=== PATIENT | male | born 1990 | race Two or more races ===

== ENCOUNTER → 2022-11-08 15:55 | Outpatient (CLI) | payer BC, SELFPAY ==
--- NOTE | 2022-11-08 16:05 | XR_ITS ---
FINAL REPORT CLINICAL HISTORY: PAIN THORACIC SPINE, PAIN X 2 YEARS, NO INJURY FINDINGS: AP, lateral, and swimmer''s views of the thoracic spine were obtained. There is no prior exam for comparison. There is no acute fracture or malalignment. Vertebral body height is preserved. Paraspinal soft tissues are within normal limits. IMPRESSION: No acute osseous abnormality of the thoracic spine. Reviewed, Interpreted and Dictated by Elizabeth Etienne MD Transcribed by Kamaljit Lloyd Authenticated and [facility]
--- NOTE | 2022-11-08 16:06 | XR_ITS ---
FINAL REPORT CLINICAL HISTORY: PAIN THORACIC SPINE, PAIN X 2 YEARS , NO INJURY FINDINGS: 3 views of the left ribs were obtained. There is no acute fracture. The visualized lungs are clear. No pneumothorax is identified. IMPRESSION: No rib fracture or pneumothorax identified. Reviewed, Interpreted and Dictated by Elizabeth Etienne MD Transcribed by Kamaljit Lloyd Authenticated and . [facility]
== END ==
LOC: RAD 16:02
PROVIDERS: PCP Family Medicine; Visit Provider Family Medicine
DX: M54.6 Pain in thoracic spine (principal)
CPT/HCPCS: 71101; 72072

== ENCOUNTER 2024-05-25 15:37 | Emergency (ER) | payer BC, SELFPAY ==
[2024-05-25 16:00] VITALS: BP 167/107; PULSE 71; RESP 20; TEMP 36.8; O2SAT 100; BMI 32.5
--- NOTE | 2024-05-25 16:13 | ED_ITS ---
Discharge Plan Disposition Patient Disposition: Home, Self-Care Condition: Good Referrals Follow up/Referrals: Provider,Referral, MD [Primary Care Provider] - See instructions Clinical Impressions Clinical Impression: Chest pain, Headache, Blood pressure alteration Instructions Patient Instructions: DASH Diet For a Healthy Blood Pressure, Blood Pressure Testing and Measurement, DI for Atypical Chest Pain Print Language Print Language: Citizen Of [place] Discharge ED Provider: Dannie Ferrara [facility] HPI General Chief complaint: Headache Stated complaint: headache, high blood pressure Mode of Arrival: Ambulatory Source of Information: Patient Limitations: No Limitations Time Seen by Provider: 05/25/24 16:13 Description of Symptoms (Recalled from Triage Doc. by RN): PATIENT REPORTS ELEVATED BLOOD PRESSURE AND HEADACHE SINCE TUESDAY. PATIENT ALSO C/O LEFT SHOULDER PAIN, NO KNOWN INJURY HEENT Symptoms (Recalled from RN notes): Yes Resp Symptoms (Recalled from RN notes): No Skin Symptoms (Recalled from RN notes): No MS Symptoms (Recalled from RN notes): No Functional Status (Recalled from RN notes): WNL History of Present Illness Provider Complaint: Patient states that he seen the chiropractor on Tuesday and they noticed his blood pressure was up, states he has been having pain in his left shoulder area Denies known injury and was at work today and was feeling weird like his heart was beating hard and he checked his blood pressure and it was up again so he came in States he has been seeing the Chiropractor for back pain Related Data Allergies Allergy/AdvReac Type Severity Reaction Status Date / Time No Known Allergies Allergy Verified 05/25/24 16:11 Worker's Comp Is this a Worker's Comp case?: No [facility] Disclaimer: The information contained in this section may have been updated after the patient was seen, as this information can be updated by other users. Medical History (Updated 05/25/24 @ 18:02 by FRANCISCO Lovelace) No significant past medical history Social History (Updated 05/25/24 @ 18:03 by FRANCISCO Lovelace) Smoking Status: Current every day smoker alcohol intake: never current occupational status: employed Travel in the last 8 weeks: None ROS Obtained: Yes All systems reviewed & no additional complaints except as documented and Yes Systems reviewed as appropriate & no additional complaints except as documented Constitutional Constitutional: Reports system reviewed and no additional complaints, except as documented, Reports as per HPI and Reports headache(s) Eyes Eyes: Reports system reviewed and no additional complaints, except as documented, Reports as per HPI and Reports blurry vision ENT Ears, Nose, Mouth, and Throat: Reports system reviewed and no additional complaints, except as documented, Reports as per HPI and Reports headache(s) Cardiovascular Cardiovascular: Reports system reviewed and no additional complaints, except as documented, Reports as per HPI, Reports palpitations and Reports other (reports pain in left shoulder area denies known injury) Gastrointestinal Gastrointestingal: Reports system reviewed and no additional complaints, except as documented and as per HPI Musculoskeletal Musculoskeletal: Reports system reviewed and no additional complaints, except as documented and Reports as per HPI Neurologic Neurologic: Reports headache(s) Endocrine Endocrine: Reports palpitations Physical Exam General General appearance: alert and in no apparent distress ENT ENT exam: Present mucous membranes moist Chest Chest inspection: Present normal inspection and symmetric chest wall rise Respiratory Respiratory exam: Present normal lung sounds bilaterally; Absent respiratory distress or wheezes Cardiovascular Cardiovascular exam: Present regular rate, normal rhythm and normal heart sounds Neurological Exam Neurological exam: Present alert, oriented X3 and normal gait Medical Decision Making Medical Records Screening: Per USPSTF and CDC recommendations, given the prevalence of disease in our region, it is our hospital?s policy to screen for HIV and viral Hepatitis for all patients aged 18 and over and those with ongoing risk factors. Rakesh Inquiry Pt receiving controlled substance: No Rakesh was queried for this patient: No Vital Signs: 05/25/24 16:00 Temperature 98.3 F Temperature Source Oral Pulse Rate [Left Brachial] 71 Respiratory Rate 20 Blood Pressure [Left Arm] 167/107 H Blood Pressure Mean [Left Arm] 127 Blood Pressure Source [Left Arm] Automatic Cuff Blood Pressure Position [Left Arm] Sitting 02 Sat by Pulse Oximetry 100 Oxygen Delivery Method Room Air Lab Data 05/25/24 16:25 05/25/24 16:25 Medical Decision Narrative: Patient reports pain in left shoulder/upper chest area denies known injury, reports blood pressure has been elevated and having headache, states after work he felt weird like his heart was beating hard, disussed with patient and will transfer to the ED for furhter work up and evaluation and patient agreed Patient was moved to room 10
--- NOTE | 2024-05-25 16:14 | PC.NURSE ---
PATIENT SENT TO ER PER Johnny CABRERA APRN FOR FURTHER EVALUATION. REPORT GIVEN TO Yanelis PRETTY RN AND DR. OROZCO BY Johnny CABRERA APRN. PATIENT AMBULATED TO ER WITH [facility] STAFF AT THIS TIME
--- NOTE | 2024-05-25 16:14 | PC.NURSE ---
Pt ambulatory to ED from [facility]
--- NOTE | 2024-05-25 16:20 | ECG_ITS ---
APPROVED REPORT Exam: Resting ECG HR:71 bpm ECG Measurements Heart Rate 71 AXES OK 172 P 41 QRSd 89 QRS 54 QT 347 T 22 QTc 370 Conclusion Sinus rhythm Electronically signed by : CARLOS OROZCO, 05/25/2024 20:45:51
--- NOTE | 2024-05-25 16:23 | XR_ITS ---
PROCEDURE INFORMATION: Exam: XR Chest Exam date and time: 05/25/2024 4:21 PM Age: 33 years old Clinical indication: Shortness of breath; Additional info: Cp; PT states SOA, high BP TECHNIQUE: Imaging protocol: Radiologic exam of the chest. Views: 1 view. Total images: 1 COMPARISON: CR XR RIBS LT MIN 3V W CXR1V 11/08/2022 4:09 PM FINDINGS: Lungs: Unremarkable. No consolidation. Pleural spaces: Unremarkable. No pleural effusion. No pneumothorax. Heart/Mediastinum: Unremarkable. No cardiomegaly. Bones/joints: Unremarkable. IMPRESSION: No acute findings.
--- NOTE | 2024-05-25 16:25 | XR_ITS ---
PROCEDURE INFORMATION: Exam: XR Left Shoulder Exam date and time: 05/25/2024 4:22 PM Age: 33 years old Clinical indication: Pain; Shoulder; Left; Additional info: Left shoulder pain, nki TECHNIQUE: Imaging protocol: Radiologic exam of the left shoulder. Views: 2 or more views. Total images: 3 COMPARISON: CR Chest 05/25/2024 4:21 PM FINDINGS: Bones/joints: No evidence of acute fracture or dislocation. Soft tissues: Soft tissues are within normal limits. IMPRESSION: No evidence of acute fracture or dislocation.
--- NOTE | 2024-05-25 16:28 | HMH.EDGENADL ---
Discharge Plan Disposition Patient Disposition: Home, Self-Care Condition: Good Referrals Follow up/Referrals: Provider,Referral, MD [Primary Care Provider] - See instructions Clinical Impressions Clinical Impression: Chest pain, Headache, Blood pressure alteration Instructions Patient Instructions: DASH Diet For a Healthy Blood Pressure, Blood Pressure Testing and Measurement, DI for Atypical Chest Pain Print Language Print Language: German Discharge ED Provider: Dannie Ferrara General Adult HPI <FRANCISCO Lovelace - Last Filed: 05/25/24 18:03> General Chief complaint: Headache Stated complaint: headache, high blood pressure Time Seen by Provider: 05/25/24 16:13 Mode of Arrival: Ambulatory Source of Information: Patient Limitations: No Limitations Description of Symptoms (Recalled from ER Triage Doc. by RN): PATIENT REPORTS ELEVATED BLOOD PRESSURE AND HEADACHE SINCE TUESDAY. PATIENT ALSO C/O LEFT SHOULDER PAIN, NO KNOWN INJURY History of Present Illness HPI narrative: 33-year-old male presents to the emergency department at the request of urgent care, for a 1 week history of waxing waning chest pain, and left shoulder pain, complains of high blood pressure, noted to have high blood pressure Tuesday at his chiropractor appointment, of 170 systolic. Patient has no past medical history consistent with hypertension, takes no other medications at home, patient does endorse that he uses Afrin nasal spray , daily for congestion. When asked how long the patient has been utilizing this treatment, he states for a long time . He denies any recent chiropractic manipulations, he does endorse chronic left shoulder pain, he also endorses headache, denies any fever chills, admits to subjective cough/congestion which is chronic he tells me. He denies any abdominal pain, nausea, vomiting, constipation, diarrhea, urinary type symptomatology. Patient has no other real past medical history, takes no other medications at home, he is a occasional smoker (tobacco products), denies any alcohol or drug use initial triage vitals are grossly unremarkable. Onset (ago): week(s) Related Data Allergies Allergy/AdvReac Type Severity Reaction Status Date / Time No Known Allergies Allergy Verified 05/25/24 16:11 PFS <FRANCISCO Lovelace - Last Filed: 05/25/24 18:03> [facility] Disclaimer: The information contained in this section may have been updated after the patient was seen, as this information can be updated by other users. Medical History (Updated 05/25/24 @ 18:02 by FRANCISCO Lovelace) No significant past medical history Social History (Updated 05/25/24 @ 18:03 by FRANCISCO Lovelace) Smoking Status: Current every day smoker alcohol intake: never current occupational status: employed Travel in the last 8 weeks: None <FRANCISCO Lovelace - Last Filed: 05/25/24 18:03> ROS Obtained: Yes All systems reviewed & no additional complaints except as documented Physical Exam <FRANCISCO Lovelace - Last Filed: 05/25/24 18:03> General General appearance: alert and in no apparent distress Head Head exam: atraumatic and normocephalic Eye Eye exam: Present normal appearance, PERRL and EOMI Neck Neck exam: Present full ROM; Absent meningismus Chest Chest inspection: Present normal inspection Respiratory Respiratory exam: Absent respiratory distress, wheezes, stridor, accessory muscle use or prolonged expiratory phase Cardiovascular Cardiovascular exam: Present normal rhythm and other (Pulses equal and symmetric in bilateral upper and lower extremities) Abdominal Exam Abdominal exam: Absent distention, tenderness, guarding or rebound Extremities Exam Extremities exam: Absent edema Neurological Exam Neurological exam: Present alert Psychiatric Psychiatric exam: Present normal affect Skin Skin exam: Present warm and dry Medical Decision Making <FRANCISCO Lovelace - Last Filed: 05/25/24 18:03> Medical Records Medical records reviewed: Yes I reviewed the patient's medical records. Screening: Per USPSTF and CDC recommendations, given the prevalence of disease in our region, it is our hospital?s policy to screen for HIV and viral Hepatitis for all patients aged 18 and over and those with ongoing risk factors. Rakesh Inquiry Pt receiving controlled substance: No Vital Signs: 05/25/24 16:00 05/25/24 16:29 05/25/24 16:33 Temperature 98.3 F 98.0 F Temperature Source Oral Oral Pulse Rate 84 Pulse Rate [Apical] 70 Pulse Rate [Left Brachial] 71 Respiratory Rate 20 18 Blood Pressure 135/99 H Blood Pressure [Left Arm] 167/107 H 134/85 Blood Pressure Mean [Left Arm] 127 101 Blood Pressure Source Blood Pressure Source [Left Arm] Automatic Cuff Automatic Cuff Blood Pressure Position Blood Pressure Position [Left Arm] Sitting Sitting 02 Sat by Pulse Oximetry 100 97 100 Oxygen Delivery Method Room Air Room Air Room Air 05/25/24 17:00 05/25/24 17:30 05/25/24 18:10 Temperature 98.0 F Temperature Source Oral Pulse Rate 83 76 76 Pulse Rate [Apical] Pulse Rate [Left Brachial] Respiratory Rate 18 Blood Pressure 143/88 H 128/80 143/90 H Blood Pressure [Left Arm] Blood Pressure Mean [Left Arm] Blood Pressure Source Automatic Cuff Blood Pressure Source [Left Arm] Blood Pressure Position Sitting Blood Pressure Position [Left Arm] 02 Sat by Pulse Oximetry 95 95 Oxygen Delivery Method Room Air Room Air Room Air Lab Data Lab results reviewed: Yes I reviewed the patient's lab results. Lab Results 05/25/24 16:25: WBC 6.7, RBC 5.19, Hgb 14.8, Hct 43.5, MCV 83.8, MCH 28.6, MCHC 34.1, RDW 13.2, Plt Count 313, MPV 7.9, Neut % (Auto) 50.5, Lymph % (Auto) 40.4, [place] % (Auto) 6.0, Eos % (Auto) 2.3, Baso % (Auto) 0.8, Neut # (Auto) 3.4, Lymph # (Auto) 2.7, [place] # (Auto) 0.4, Eos # (Auto) 0.2, Baso # (Auto) 0.1, PT 10.6, INR 0.94, D-Dimer < 0.25, Sodium 140, Potassium 3.7, Chloride 106, Carbon Dioxide 29, Anion Gap 8.7, BUN 16, Creatinine 1.10, Estimated Creat Clear 142, Estimated GFR 78, Est GFR ( Amer) 94, Glucose 80, Calcium 9.9, Total Bilirubin 0.4, AST 46, ALT 47, Alkaline Phosphatase 49, Total Creatine Kinase 370 H, Troponin I < 0.01, NT-Pro-B Natriuret Pep < 20.0, Total Protein 7.9, Albumin 4.7, Globulin 3.2, Albumin/Globulin Ratio 1.5, HIV 1&2 Antibody Rapid Nonreactive 05/25/24 16:25 05/25/24 16:25 Orders (Tests/Meds): ED MEDICATIONS Discontinued Medications Generic Name Dose Route Start Last Admin Trade Name Freq PRN Reason Stop Dose Admin Aspirin 324 mg 05/25/24 16:23 05/25/24 16:33 Aspirin 81mg Chewable Tablet PO 05/25/24 16:24 324 mg ONCE ONE Administration ORDERS Category Date Time Status XR chest portable Stat Exams 05/25/24 16:23 Completed XR shoulder LT min 2V Stat Exams 05/25/24 16:25 Completed CK [Creatine Kinase] Stat Lab 05/25/24 16:25 Completed Complete Blood Count Auto Diff Stat Lab 05/25/24 16:25 Completed Comprehensive Metabolic Panel Stat Lab 05/25/24 16:25 Completed D-Dimer Stat Lab 05/25/24 16:25 Completed HIV (1&2) Antibody Rapid Stat Lab 05/25/24 16:25 Completed Hep C Ab with Reflex to RNA Stat Lab 05/25/24 16:25 Received NT Pro Brain Natriuretic Pep. Stat Lab 05/25/24 16:25 Completed PT INR [Prothrombin Time INR] Stat Lab 05/25/24 16:25 Completed Troponin I Stat Lab 05/25/24 16:25 Completed HEART Score History (anamnesis): Slightly suspicious ECG: Normal Age: <45 years Risk factors: No known risk factors Troponin: </= normal limit HEART Score: 0 Medical Decision Narrative: 33-year-old male presents emergency department with chest pain, shoulder pain, high blood pressure and headache, additional diagnose include but limited to ACS, pneumonia, costochondritis, acute shoulder impingement, rotator cuff injury, anxiety type reaction, panic attack, side effect from alpha agonist, illness anxiety disorder, hypertensive urgency, hypertensive emergency. I discussed patient case with attending physician Dr. Ferrara Obtain CBC CMP, CK, D-dimer, proBNP, PT/INR, troponin, CXR, x-ray of the shoulder on the left, give the 24 mg p.o. aspirin for chest pain I reviewed the patient's EKG, 71 bpm, NSR, OH interval within normal limits, QT interval within normal limits there is no STEMI. CBC unremarkable PT/INR is unremarkable CMP is notable for CK elevation at 370 otherwise unremarkable I reviewed patient's left shoulder x-ray along the corresponding radiologic report, no evidence of acute fracture or dislocation. I reviewed the patient's chest x-ray along the corresponding radiologic report, no acute findings. D-dimer negative The patient's heart score is 0. I had a long discussion with the patient and family the bedside, patient and family are cleared to be discharged home to self-care, low heart score, chest pain most likely musculoskeletal versus anxiety in nature. Patient follow-up with PCP as directed, strict ED return precautions given. Patient voiced understand agreement current treatment plan/discharge plan <Dannie Ferrara MD - Last Filed: 05/25/24 19:39> Vital Signs: 05/25/24 16:00 05/25/24 16:29 05/25/24 16:33 Temperature 98.3 F 98.0 F Temperature Source Oral Oral Pulse Rate 84 Pulse Rate [Apical] 70 Pulse Rate [Left Brachial] 71 Respiratory Rate 20 18 Blood Pressure 135/99 H Blood Pressure [Left Arm] 167/107 H 134/85 Blood Pressure Mean [Left Arm] 127 101 Blood Pressure Source Blood Pressure Source [Left Arm] Automatic Cuff Automatic Cuff Blood Pressure Position Blood Pressure Position [Left Arm] Sitting Sitting 02 Sat by Pulse Oximetry 100 97 100 Oxygen Delivery Method Room Air Room Air Room Air 05/25/24 17:00 05/25/24 17:30 05/25/24 18:10 Temperature 98.0 F Temperature Source Oral Pulse Rate 83 76 76 Pulse Rate [Apical] Pulse Rate [Left Brachial] Respiratory Rate 18 Blood Pressure 143/88 H 128/80 143/90 H Blood Pressure [Left Arm] Blood Pressure Mean [Left Arm] Blood Pressure Source Automatic Cuff Blood Pressure Source [Left Arm] Blood Pressure Position Sitting Blood Pressure Position [Left Arm] 02 Sat by Pulse Oximetry 95 95 Oxygen Delivery Method Room Air Room Air Room Air Lab Data Lab Results 05/25/24 16:25: WBC 6.7, RBC 5.19, Hgb 14.8, Hct 43.5, MCV 83.8, MCH 28.6, MCHC 34.1, RDW 13.2, Plt Count 313, MPV 7.9, Neut % (Auto) 50.5, Lymph % (Auto) 40.4, [place] % (Auto) 6.0, Eos % (Auto) 2.3, Baso % (Auto) 0.8, Neut # (Auto) 3.4, Lymph # (Auto) 2.7, [place] # (Auto) 0.4, Eos # (Auto) 0.2, Baso # (Auto) 0.1, PT 10.6, INR 0.94, D-Dimer < 0.25, Sodium 140, Potassium 3.7, Chloride 106, Carbon Dioxide 29, Anion Gap 8.7, BUN 16, Creatinine 1.10, Estimated Creat Clear 142, Estimated GFR 78, Est GFR ( Amer) 94, Glucose 80, Calcium 9.9, Total Bilirubin 0.4, AST 46, ALT 47, Alkaline Phosphatase 49, Total Creatine Kinase 370 H, Troponin I < 0.01, NT-Pro-B Natriuret Pep < 20.0, Total Protein 7.9, Albumin 4.7, Globulin 3.2, Albumin/Globulin Ratio 1.5, HIV 1&2 Antibody Rapid Nonreactive Orders (Tests/Meds): ED MEDICATIONS Discontinued Medications Generic Name Dose Route Start Last Admin Trade Name Freq PRN Reason Stop Dose Admin Aspirin 324 mg 05/25/24 16:23 05/25/24 16:33 Aspirin 81mg Chewable Tablet PO 05/25/24 16:24 324 mg ONCE ONE Administration ORDERS Category Date Time Status XR chest portable Stat Exams 05/25/24 16:23 Completed XR shoulder LT min 2V Stat Exams 05/25/24 16:25 Completed CK [Creatine Kinase] Stat Lab 05/25/24 16:25 Completed Complete Blood Count Auto Diff Stat Lab 05/25/24 16:25 Completed Comprehensive Metabolic Panel Stat Lab 05/25/24 16:25 Completed D-Dimer Stat Lab 05/25/24 16:25 Completed HIV (1&2) Antibody Rapid Stat Lab 05/25/24 16:25 Completed Hep C Ab with Reflex to RNA Stat Lab 05/25/24 16:25 Received NT Pro Brain Natriuretic Pep. Stat Lab 05/25/24 16:25 Completed PT INR [Prothrombin Time INR] Stat Lab 05/25/24 16:25 Completed Troponin I Stat Lab 05/25/24 16:25 Completed HEART Score HEART Score: 0 Medical Decision Narrative: 33-year-old male presents emergency department with chest pain, shoulder pain, high blood pressure and headache, additional diagnose include but limited to ACS, pneumonia, costochondritis, acute shoulder impingement, rotator cuff injury, anxiety type reaction, panic attack, side effect from alpha agonist, illness anxiety disorder, hypertensive urgency, hypertensive emergency. I discussed patient case with attending physician Dr. Ferrara Obtain CBC CMP, CK, D-dimer, proBNP, PT/INR, troponin, CXR, x-ray of the shoulder on the left, give the 24 mg p.o. aspirin for chest pain I reviewed the patient's EKG, 71 bpm, NSR, OH interval within normal limits, QT interval within normal limits there is no STEMI. CBC unremarkable PT/INR is unremarkable CMP is notable for CK elevation at 370 otherwise unremarkable I reviewed patient's left shoulder x-ray along the corresponding radiologic report, no evidence of acute fracture or dislocation. I reviewed the patient's chest x-ray along the corresponding radiologic report, no acute findings. D-dimer negative The patient's heart score is 0. I had a long discussion with the patient and family the bedside, patient and family are cleared to be discharged home to self-care, low heart score, chest pain most likely musculoskeletal versus anxiety in nature. Patient follow-up with PCP as directed, strict ED return precautions given. Patient voiced understand agreement current treatment plan/discharge plan I was consulted by the NICOL, and we discussed the complexity of the problems being addressed. I approved the treatment and management plan for this patient's care in the Emergency Department, thus performing a substantive portion of the medical decision making. Dannie Ferrara MD Critical Care <FRANCISCO Lovelace - Last Filed: 05/25/24 18:03> Critical Care Time Critical Care Time: No
[2024-05-25 16:29] VITALS: BP 135/99; PULSE 84; O2SAT 97
--- NOTE | 2024-05-25 16:31 | PC.NURSE ---
Pt out of room with Rad for x-ray
--- NOTE | 2024-05-25 16:31 | PC.NURSE ---
PT TO XR
[2024-05-25 16:33] VITALS: BP 134/85; PULSE 70; RESP 18; TEMP 36.7; O2SAT 100; BMI 32.5
[2024-05-25] MEDS: ASPIRIN 81MG CHEWABLE TABLET 324 MG PO (16:33)
--- NOTE | 2024-05-25 16:34 | PC.NURSE ---
Pt back in room from Rad
--- NOTE | 2024-05-25 16:34 | PC.NURSE ---
pt back from RAD
[2024-05-25 16:48] LABS: Albumin Level 4.7 g/dl (3.5-5.0); Chloride 106 mmol/L (98-107); Sodium 140 mmol/L (136-145)
[2024-05-25 16:49] LABS: Basophils # 0.1 K/mm3 (0-0.2); Basophils % 0.8 % (0.1-2.0); Eosinophils # 0.2 K/mm3 (0.0-0.4); Eosinophils % 2.3 % (0.1-12.0); Hematocrit 43.5 % (42.0-52.0); Hemoglobin 14.8 g/dL (14.1-18.0); Lymphocytes # 2.7 K/mm3 (0.7-4.5); Lymphocytes % 40.4 % (10-50); Mean Corpuscular HGB Conc 34.1 g/dL (31.8-35.4); Mean Corpuscular Hemoglobin 28.6 pg (27.0-31.2); Mean Corpuscular Volume 83.8 fl (80-94); Mean Platelet Volume 7.9 fl (7.4-10.4); Monocytes # 0.4 K/mm3 (0.1-1.0); Neutrophils # 3.4 K/mm3 (1.8-7.8); Neutrophils % 50.5 % (37.0-80.0); Platelet Count 313 K/mm3 (142-424); Potassium 3.7 mmoL/L (3.5-5.1); Red Blood Count 5.19 M/mm3 (4.60-6.20); Red Cell Distribution Width 13.2 % (11.5-17.5); White Blood Count 6.7 K/mm3 (4.8-10.8)
[2024-05-25 16:51] LABS: Alanine Aminotransferase 47 U/L (12-78); Albumin/Globulin Ratio 1.5 (1.1-1.8); Alkaline Phosphatase 49 U/L (38-126); Anion Gap 8.7 mEq/L (5-15); Aspartate Amino Transferase 46 U/L (17-59); Bilirubin,Total 0.4 mg/dl (0.2-1.3); Blood Urea Nitrogen 16 mg/dl (9-20); Carbon Dioxide 29 mmol/L (22.0-30.0); Creatine Kinase 370 U/L (55-170); Creatinine Clearance Estimated 142 mL/min (50-200); Estimated Glomerular Filt Rate 78 ml/min (>60); GFR (African American) 94 ML/MIN (>60); Globulin 3.2 g/dL (1.3-3.2); Total Protein,Serum 7.9 g/dl (6.3-8.2)
[2024-05-25 16:52] LABS: Calcium 9.9 mg/dl (8.4-10.2); Glucose 80 mg/dl (74-100)
[2024-05-25 16:55] LABS: INR 0.94 (0.9-1.1); Prothrombin Time 10.6 seconds (10.1-12.5)
[2024-05-25 17:00] VITALS: BP 143/88; PULSE 83; O2SAT 95
[2024-05-25 17:09] LABS: NT Pro Brain Natriuretic Pep. < 20.0 pg/mL (0-125)
[2024-05-25 17:17] LABS: Troponin I < 0.01 ng/ml (0.00-0.034)
[2024-05-25 17:25] LABS: D-Dimer < 0.25 ug/mL (0.0-0.5)
[2024-05-25 17:30] VITALS: BP 128/80; PULSE 76; O2SAT 95
[2024-05-25 18:10] VITALS: BP 143/90; PULSE 76; RESP 18; TEMP 36.7; O2SAT 97
[2024-05-25 18:34] LABS: HIV (1&2) Antibody Rapid NONREACTIVE (NONREACTIVE)
[2024-05-27 08:10] LABS: HCV Ab Non Reactive (Non Reactive)
== END 2024-05-25 18:10 | disposition home or self-care (01) ==
LOC: UTC 15:40 → ER 16:14
PROVIDERS: Physician Assistant; Emergency Provider Emergency Medicine
DX: R07.9 Chest pain, unspecified (principal); R51.9 Headache, unspecified; R68.89 Other general symptoms and signs
CPT/HCPCS: 71045; 73030; 80053; 82550; 83880; 84484; 85025; 85378; 85610; 86803; 87389; 93005; 99284

== ENCOUNTER 2024-12-19 12:20 | Day surgery (SDC) | payer BC, SELFPAY ==
[2024-12-12 13:31] VITALS: BMI 31.5
[2024-12-19 12:35] VITALS: BP 136/85; PULSE 79; RESP 18; TEMP 36.5; O2SAT 96
[2024-12-19] MEDS: LACTATED RINGERS 1000ML 1,000 ML 50 ML IV (12:47)
--- NOTE | 2024-12-19 13:14 | P.HP_ITS ---
History of Present Illness *Admission Date: 12/19/24 *Reason for visit:: Bright red blood per rectum and incomplete defecation, lower abdominal pain *History of present illness: Mr. Pichardo is a 34-year-old gentleman who is here for diagnostic colonoscopy secondary to bright red blood per rectum, lower abdominal pain, incomplete defecation, diarrhea and family history of colon cancer. The examination is deemed medically necessary for diagnostic colonoscopy. The patient has been seen, interviewed and examined prior to the procedure by both myself and the anesthesia provider. [facility] Disclaimer: The information contained in this section may have been updated after the patient was seen, as this information can be updated by other users. Medical History Acid reflux Hypertension Surgical History H/O wisdom tooth extraction H/O thumb surgery Family History Other Cancer Hypertension Social History Smoking Status: Current every day smoker alcohol intake: never substance use type: denies use current occupational status: employed Travel in the last 8 weeks?: None caffeine: Yes Review of Systems Review of Systems Review of systems (narrative): Negative *Cardiovascular Comments: Negative *Gastrointestinal Comments: Negative *Genitourinary Comments: Negative *Musculoskeletal Comments: Negative *Neurologic Comments: Negative Meds Home Medications and Allergies Home Medications ?Medication ?Instructions ?Recorded ?Confirmed ?Type lisinopril 20 mg tablet 20 mg PO DAILY 10/24/24 12/19/24 History sodium,potassium,mag sulfates 17.5 See Rx Instructions PO .COMPLEX 12/12/24 Rx gram-3.13 gram-1.6 gram oral soln #354 mL (Suprep Bowel Prep Kit) fexofenadine 60 mg-pseudoephedrine 1 tab PO DAILY 12/19/24 12/19/24 History ER 120 mg tablet,ext.release,12 hr (Love-D 12 Hour) New Prescriptions to Start Prescriptions: Allergies Allergy/AdvReac Type Severity Reaction Status Date / Time No Known Allergies Allergy Verified 12/19/24 12:39 Exam Data for Last 24 hours Vital signs and Labs for Last 24 Hours: Temp Pulse Resp BP Pulse Ox O2 Del Method 97.7 F 79 18 136/85 96 Room Air 12/19/24 12:35 12/19/24 12:35 12/19/24 12:35 12/19/24 12:35 12/19/24 12:35 12/19/24 12:35 *Routine HEENT Exam Head: Present normocephalic Eye: Present EOMI and PERRL ENT: Present mucous membranes moist *Routine Neck Exam Neck: Present supple *Routine Respiratory Exam Respiratory: Present CTA bilaterally *Routine Cardiovascular Exam Cardiovascular: Present RRR *Routine Abdominal Exam Abdominal: Present soft and normoactive bowel sounds; Absent tenderness *Routine Rectal Exam Rectal:: deferred *Routine Genitalia Exam Genitalia:: deferred *Routine Extremities Exam Extremities: Absent cyanosis, clubbing or edema *Routine Skin Exam Skin: Present warm; Absent rash *Routine Neurological Exam Neurological: Present alert and oriented X3 Assessment and Plan *Assessment and plan (1) Bright red blood per rectum: Status: Acute Category: Medical Code(s): K62.5 - Hemorrhage of anus and rectum (2) Incomplete defecation: Status: Acute Category: Medical Code(s): R15.0 - Incomplete defecation (3) Family history of colon cancer: Status: Acute Category: Medical Code(s): Z80.0 - Family history of malignant neoplasm of digestive organs (4) Lower abdominal pain: Status: Acute Category: Medical Code(s): R10.30 - Lower abdominal pain, unspecified (5) Diarrhea: Status: Acute Category: Medical Code(s): R19.7 - Diarrhea, unspecified Plan A/P: 1. Bright red blood per rectum, incomplete defecation with straining, lower abdominal pain, diarrhea and family history of colon cancer is the preprocedural diagnosis. The patient will be anesthetized/sedated using MAC sedation. The patient has been seen and examined. Cardiac and lung assessment prior to the examination is stable. Proceed with planned diagnostic colonoscopy.
--- NOTE | 2024-12-19 13:17 | EXP.ANES.CKL ---
[facility] Disclaimer: The information contained in this section may have been updated after the patient was seen, as this information can be updated by other users. Medical History Acid reflux Hypertension Surgical History H/O wisdom tooth extraction H/O thumb surgery Family History Other Cancer Hypertension Social History Smoking Status: Current every day smoker alcohol intake: never substance use type: denies use current occupational status: employed Travel in the last 8 weeks?: None caffeine: Yes [facility] Anesthesia Checklist Patient Identification Patient Identification: Arm Band Structural Data Admitted From: Home Planned Operative Procedure/s: Colonoscopy Consent for Planned Operative Procedure(s) Verified: Yes Verified Documents: Surgical Consent and History and Physical NPO Status Verified Time NPO: 00:00 Additional verifications Anesthesia Reactions: No Airway Assessment Mallampati Score:: Class II C-Spine Mobility Assessed: Yes TMJ Mobility Assessed: Yes Dentition: Good Dentition Neurological Assessment Level of Consciousness: Awake, Alert and Appropriate Anesthesia Plan Anesthesia Risk discussed: Yes Anesthesia Plan: Verified ASA Class: II Anesthesia Type: MAC
--- NOTE | 2024-12-19 13:22 | HMH.PROCNOTE ---
[facility] Procedure Note Date: 12/19/24 Time: 13:36 Procedure Note:: Colonoscopy Procedure Report: Colonoscopy with monopolar ablation/coagulation of internal hemorrhoids Endoscopist: Matt Patel II, MD Referring physician: Ashlyn Chapin PA-C Date of Procedure: December 19, 2024 Equipment: Olympus 190 variable stiffness pediatric colonoscope Sedation: MAC sedation Indication: Mr. Pichardo is a 34-year-old gentleman who has had intermittent bright red rectal bleeding over the last 6 to 8 months which was occurring once weekly but has improved. He also has intermittent lower abdominal pain and discomfort which is worsened in the mornings. He has 1-2 bowel movements daily that may vary in consistency and once a week he will have some diarrhea. He does report incomplete defecation. He does state that his paternal grandmother had colon cancer at the age of 64. He has never had a colonoscopy. He reports no mucus in his stools or weight loss. He does have some gassiness and bloating. Procedure: Prior to the procedure, a history and physical exam was performed, and patient's medications and allergies were reviewed. The risks, benefits and alternatives of the sedation and procedure were discussed with the patient. All questions were answered and informed consent was obtained. The patient was brought to the procedure room. Patient identification and proposed procedure were verified by the physician and the nurse. The patient was placed in a left lateral decubitus position and the scope was passed under direct vision. Throughout the procedure, the patient's blood pressure, pulse, and oxygen saturations were monitored continuously. The colonoscopy was accomplished without difficulty. The patient tolerated the procedure well. Findings: On digital rectal examination there was normal rectal tone. There were no external hemorrhoids. The colonoscope was introduced through the anal canal to the rectum and advanced to the cecum. The ileocecal valve and appendiceal orifice were identified. The scope was advanced a short distance into the ileum which appeared grossly normal. The scope was then withdrawn into the colon. The cecum, ascending, transverse, descending, sigmoid and rectum were grossly normal. There were no mucosal abnormalities identified. Upon retroflexion within the rectum there were grade 2 internal hemorrhoids. 3 columns of hemorrhoids were ablated/coagulated using monopolar ablation to destruction. The preparation was excellent throughout with Redby Preparation Score of 9. The cecal time was 10 minutes. Impression: 1. Normal colonoscopy with intubation of the terminal ileum 2. Grade 2 internal hemorrhoids status post monopolar ablation/coagulation Plan: The patient's bleeding was from the internal hemorrhoids. I would resume the fiber bowel regimen (combined MiraLAX plus Metamucil) on a long-term daily maintenance basis. I will discuss the findings with the patient and family.
[2024-12-19 13:40] VITALS: BP 111/71; PULSE 96; RESP 17; TEMP 36.5; O2SAT 95
[2024-12-19 13:50] VITALS: BP 118/60; PULSE 90; RESP 18; O2SAT 96
[2024-12-19 14:00] VITALS: BP 112/64; PULSE 94; RESP 18; O2SAT 97
[2024-12-19 14:10] VITALS: BP 121/70; PULSE 91; RESP 18; TEMP 36.5; O2SAT 97
== END 2024-12-19 14:21 | disposition home or self-care (01) ==
PROVIDERS: PCP Physician Assistant; Visit Provider Internal Medicine Gastroenterology
PROC: 0DJD8ZZ Inspection of Lower Intestinal Tract, Via Natural or Artificial Opening Endoscopic (ICD-10-PCS; CPT 45378; principal; 2024-12-19 14:00)
DX: K62.5 Hemorrhage of anus and rectum (principal); R15.0 Incomplete defecation; Z80.0 Family history of malignant neoplasm of digestive organs; R10.30 Lower abdominal pain, unspecified; R19.7 Diarrhea, unspecified; K64.1 Second degree hemorrhoids
CPT/HCPCS: 45388; J7120